=== PATIENT | female | born 1960 | race Caucasian/White ===

== ENCOUNTER 2016-07-29 13:03 | Inpatient (IN) ==
[2016-07-29 13:32] LABS: Basophils # 0.1 K/mcL (0.0-0.2); Basophils % 0.2 %; Hematocrit 38.3 % (35.3-44.9); Hemoglobin 12.4 g/dL (11.5-15.4); Immature Granulocytes % 0.7 % (0-4); Lymphocytes # 1.2 K/mcL (0.6-4.6); Lymphocytes % 4.2 %; Mean Corpuscular HGB Conc 32.4 g/dL (31.6-35.5); Mean Corpuscular Hemoglobin 24.9 pg (28.0-33.3); Mean Corpuscular Volume 76.9 fL (83.0-100.0); Mean Platelet Volume 11.2 fL (9.4-12.4); Monocytes # 0.5 K/mcL (0.0-1.3); Monocytes % 1.7 %; Neutrophils # 25.7 K/mcL (1.6-8.9); Platelet Count 335 K/mcL (140-400); Red Blood Count 4.98 M/mcL (3.82-4.97); Red Cell Distribution Width 18.1 % (11.5-14.5); Segmented Neutrophils % 93.2 %
[2016-07-29 13:36] LABS: Prothrombin Time 22.2 Seconds (9.4-12.1)
[2016-07-29 13:38] LABS: Activated Partial Thrombo Time 38.5 Seconds (26.0-36.0)
[2016-07-29 13:39] LABS: Bilirubin,Urine Negative (Negative); Blood,Urine Moderate (Negative); Color,Urine Dark Yellow (Yellow); Glucose,Urine (UA) Normal (Normal); Ketones,Urine Negative (Negative); Leukocyte Esterase,Urine Trace (Negative); Nitrite,Urine Positive (Negative); Protein,Urine 30 mg/dL (Neg-Trace); Specific Gravity,Urine 1.021 (1.010-1.025); Urobilinogen,Urine Normal (Normal)
[2016-07-29 13:41] LABS: Bacteria,Urine Many per hpf (None-Few); Hyaline Casts,Urine None Seen per lpf (None-Few); RBC,Urine 30-50 per hpf (0-3); Squamous Epithelial Cell,Urine Many per lpf (None-Few); WBC,Urine 0-3 per hpf (0-3)
[2016-07-29 13:44] LABS: Clarity,Urine Clear (Clear)
[2016-07-29 13:44] LABS: BUN/Creatinine Ratio 22 (6-26); Blood Urea Nitrogen 15 mg/dL (7-20); Carbon Dioxide 24 mEq/L (19-29); Chloride 101 mEq/L (98-109); Glucose 150 mg/dL (70-99); Osmolality,Calculated 288 (280-300); Potassium 3.6 mEq/L (3.5-4.5); Sodium 137 mEq/L (136-145); eGFR For African Americans > 60 (> 60); eGFR For Non-African Americans > 60 (> 60)
[2016-07-29 13:45] LABS: Alanine Aminotransferase 43 Units/L (0-55); Albumin 3.2 g/dL (3.5-5.0); Albumin/Globulin Ratio 0.7 (1.1-2.2); Alkaline Phosphatase 176 Units/L (38-126); Aspartate Amino Transferase 46 Units/L (5-34); Bilirubin,Direct 0.7 mg/dL (0.0-0.5); Bilirubin,Indirect 1.1 mg/dL (0.0-1.2); Bilirubin,Total 1.8 mg/dL (0.2-1.2); Globulin 4.4 g/dL (2.4-3.5); Magnesium 1.2 mg/dL (1.6-2.6); Phosphorous 2.6 mg/dL (2.3-4.7); Total Protein 7.6 g/dL (6.0-8.3)
[2016-07-29 14:02] LABS: Anisocytosis 1+ (Not Present); Platelet Estimate Normal (Normal)
[2016-07-30 06:42] LABS: Basophils % 0.2 %; Hematocrit 28.5 % (35.3-44.9); Immature Granulocytes % 0.9 % (0-4); Lymphocytes # 2.1 K/mcL (0.6-4.6); Lymphocytes % 13.1 %; Mean Corpuscular HGB Conc 30.5 g/dL (31.6-35.5); Mean Corpuscular Hemoglobin 24.3 pg (28.0-33.3); Mean Corpuscular Volume 79.6 fL (83.0-100.0); Mean Platelet Volume 11.3 fL (9.4-12.4); Monocytes # 0.6 K/mcL (0.0-1.3); Monocytes % 3.5 %; Neutrophils # 12.9 K/mcL (1.6-8.9); Platelet Count 206 K/mcL (140-400); Prothrombin Time 21.9 Seconds (9.4-12.1); Red Blood Count 3.58 M/mcL (3.82-4.97); Red Cell Distribution Width 18.4 % (11.5-14.5); Segmented Neutrophils % 82.3 %
[2016-07-30 06:45] LABS: Hemoglobin 8.7 g/dL (11.5-15.4)
[2016-07-30 06:55] LABS: BUN/Creatinine Ratio 21 (6-26); Blood Urea Nitrogen 13 mg/dL (7-20); Calcium 7.4 mg/dL (8.6-10.8); Carbon Dioxide 23 mEq/L (19-29); Chloride 109 mEq/L (98-109); Glucose 111 mg/dL (70-99); Magnesium 1.1 mg/dL (1.6-2.6); Osmolality,Calculated 287 (280-300); Potassium 3.1 mEq/L (3.5-4.5); Sodium 138 mEq/L (136-145); eGFR For African Americans > 60 (> 60); eGFR For Non-African Americans > 60 (> 60)
[2016-07-30 08:22] LABS: Hematocrit 29.7 % (35.3-44.9); Hemoglobin 9.4 g/dL (11.5-15.4)
[2016-07-31 02:01] LABS: Basophils % 0.2 %; Eosinophils # 0.1 K/mcL (0.0-0.6); Eosinophils % 0.4 %; Hematocrit 26.6 % (35.3-44.9); Hemoglobin 8.2 g/dL (11.5-15.4); Immature Granulocytes % 0.5 % (0-4); Lymphocytes # 2.4 K/mcL (0.6-4.6); Lymphocytes % 17.1 %; Mean Corpuscular HGB Conc 30.8 g/dL (31.6-35.5); Mean Corpuscular Hemoglobin 24.3 pg (28.0-33.3); Mean Corpuscular Volume 78.7 fL (83.0-100.0); Mean Platelet Volume 10.7 fL (9.4-12.4); Monocytes # 0.7 K/mcL (0.0-1.3); Monocytes % 4.7 %; Neutrophils # 10.7 K/mcL (1.6-8.9); Platelet Count 175 K/mcL (140-400); Red Blood Count 3.38 M/mcL (3.82-4.97); Red Cell Distribution Width 18.3 % (11.5-14.5); Segmented Neutrophils % 77.1 %
[2016-07-31 02:05] LABS: INR 1.6; Prothrombin Time 17.7 Seconds (9.4-12.1)
[2016-07-31 02:12] LABS: BUN/Creatinine Ratio 19 (6-26); Blood Urea Nitrogen 10 mg/dL (7-20); Calcium 7.5 mg/dL (8.6-10.8); Carbon Dioxide 20 mEq/L (19-29); Chloride 111 mEq/L (98-109); Glucose 109 mg/dL (70-99); Magnesium 1.4 mg/dL (1.6-2.6); Osmolality,Calculated 282 (280-300); Potassium 3.4 mEq/L (3.5-4.5); Sodium 136 mEq/L (136-145); eGFR For African Americans > 60 (> 60); eGFR For Non-African Americans > 60 (> 60)
[2016-07-31 13:37] LABS: Hematocrit 27.9 % (35.3-44.9); Hemoglobin 8.5 g/dL (11.5-15.4)
[2016-08-01 06:21] LABS: INR 1.5; Prothrombin Time 16.1 Seconds (9.4-12.1)
[2016-08-01 06:24] LABS: Basophils % 0.2 %; Eosinophils # 0.1 K/mcL (0.0-0.6); Eosinophils % 0.7 %; Hematocrit 26.7 % (35.3-44.9); Hemoglobin 8.2 g/dL (11.5-15.4); Immature Granulocytes % 0.4 % (0-4); Lymphocytes # 2.2 K/mcL (0.6-4.6); Lymphocytes % 20.1 %; Mean Corpuscular HGB Conc 30.7 g/dL (31.6-35.5); Mean Corpuscular Hemoglobin 24.1 pg (28.0-33.3); Mean Corpuscular Volume 78.5 fL (83.0-100.0); Mean Platelet Volume 11.5 fL (9.4-12.4); Monocytes # 0.6 K/mcL (0.0-1.3); Monocytes % 5.2 %; Neutrophils # 8.2 K/mcL (1.6-8.9); Platelet Count 221 K/mcL (140-400); Red Cell Distribution Width 18.4 % (11.5-14.5); Segmented Neutrophils % 73.4 %
[2016-08-01 06:29] LABS: BUN/Creatinine Ratio 9 (6-26); Carbon Dioxide 24 mEq/L (19-29); Chloride 106 mEq/L (98-109); Glucose 87 mg/dL (70-99); Magnesium 1.4 mg/dL (1.6-2.6); Osmolality,Calculated 281 (280-300); Potassium 3.6 mEq/L (3.5-4.5); Sodium 137 mEq/L (136-145); eGFR For African Americans > 60 (> 60); eGFR For Non-African Americans > 60 (> 60)
[2016-08-01 06:32] LABS: Blood Urea Nitrogen 5 mg/dL (7-20)
[2016-08-02 06:13] LABS: INR 1.6; Prothrombin Time 17.6 Seconds (9.4-12.1)
[2016-08-02 06:25] LABS: Basophils % 0.2 %; Eosinophils # 0.1 K/mcL (0.0-0.6); Eosinophils % 0.6 %; Hematocrit 25.1 % (35.3-44.9); Hemoglobin 7.8 g/dL (11.5-15.4); Immature Granulocytes % 0.5 % (0-4); Lymphocytes # 2.3 K/mcL (0.6-4.6); Lymphocytes % 18.3 %; Mean Corpuscular HGB Conc 31.1 g/dL (31.6-35.5); Mean Corpuscular Hemoglobin 24.4 pg (28.0-33.3); Mean Corpuscular Volume 78.4 fL (83.0-100.0); Mean Platelet Volume 11.8 fL (9.4-12.4); Monocytes # 0.9 K/mcL (0.0-1.3); Monocytes % 7.2 %; Neutrophils # 9.3 K/mcL (1.6-8.9); Platelet Count 241 K/mcL (140-400); Red Cell Distribution Width 18.1 % (11.5-14.5); Segmented Neutrophils % 73.2 %
[2016-08-02 06:27] LABS: BUN/Creatinine Ratio 15 (6-26); Blood Urea Nitrogen 8 mg/dL (7-20); Calcium 8.2 mg/dL (8.6-10.8); Carbon Dioxide 28 mEq/L (19-29); Chloride 103 mEq/L (98-109); Glucose 113 mg/dL (70-99); Magnesium 1.5 mg/dL (1.6-2.6); Osmolality,Calculated 285 (280-300); Potassium 3.6 mEq/L (3.5-4.5); Sodium 138 mEq/L (136-145); eGFR For African Americans > 60 (> 60); eGFR For Non-African Americans > 60 (> 60)
[2016-08-03 04:41] LABS: Basophils % 0.3 %; Eosinophils # 0.2 K/mcL (0.0-0.6); Eosinophils % 1.7 %; Hematocrit 25.7 % (35.3-44.9); Hemoglobin 8.1 g/dL (11.5-15.4); Immature Granulocytes % 0.8 % (0-4); Lymphocytes # 2.4 K/mcL (0.6-4.6); Lymphocytes % 20.7 %; Mean Corpuscular HGB Conc 31.5 g/dL (31.6-35.5); Mean Corpuscular Hemoglobin 24.9 pg (28.0-33.3); Mean Corpuscular Volume 79.1 fL (83.0-100.0); Mean Platelet Volume 11.5 fL (9.4-12.4); Monocytes # 0.9 K/mcL (0.0-1.3); Monocytes % 7.9 %; Neutrophils # 7.8 K/mcL (1.6-8.9); Platelet Count 263 K/mcL (140-400); Red Blood Count 3.25 M/mcL (3.82-4.97); Red Cell Distribution Width 17.9 % (11.5-14.5); Segmented Neutrophils % 68.6 %
[2016-08-03 04:45] LABS: Prothrombin Time 21.6 Seconds (9.4-12.1)
[2016-08-03 05:01] LABS: BUN/Creatinine Ratio 12 (6-26); Blood Urea Nitrogen 6 mg/dL (7-20); Calcium 7.9 mg/dL (8.6-10.8); Carbon Dioxide 31 mEq/L (19-29); Chloride 103 mEq/L (98-109); Glucose 102 mg/dL (70-99); Magnesium 1.5 mg/dL (1.6-2.6); Osmolality,Calculated 290 (280-300); Potassium 3.6 mEq/L (3.5-4.5); Sodium 141 mEq/L (136-145); eGFR For African Americans > 60 (> 60); eGFR For Non-African Americans > 60 (> 60)
[2016-08-03 08:20] VITALS: BP 109/73
== END 2016-08-03 16:25 | disposition home health service (06) | DRG 872 ==
LOC: EMEROO 13:03 → 2NENU 13:03 → SUATTDRO 19:58
PROVIDERS: ADMIT Internal Medicine; ATTEND Internal Medicine